=== PATIENT | female | born 2000 | race Two or more races ===

== ENCOUNTER → 2022-09-07 | Emergency (ER) | payer OTHER ==
[~2022-09-07] VITALS: Ht 170.2 cm; Wt 71.2 kg
[~2022-09-07] MED LIST: BACTRIM DS TAB1 EACH PO
== END | disposition left against medical advice (07) ==
LOC: ER 01:07
DX: Z53.21 Procedure and treatment not carried out due to patient leaving prior to being seen by health care provider (principal)